=== PATIENT | female | born 1985 | race Caucasian/White ===

== ENCOUNTER → 2018-12-14 | Outpatient (CLI) | payer BC ==
[2018-12-14 23:27] LABS: T4, Free (Free Thyroxine) 1.1 ng/dL (0.80-1.80)
== END | disposition home or self-care (01) ==
LOC: LABWHC1 15:40
PROVIDERS: ATTEND Internal Medicine Endocrinology, Diabetes & Metabolism
DX: E04.1 Nontoxic single thyroid nodule (principal)
CPT/HCPCS: 36415; 84439; 84443

== ENCOUNTER → 2019-05-31 | Outpatient (CLI) | payer BC ==
--- NOTE | 2019-05-31 09:12 | US ---
EXAMINATION TYPE: US gallbladder DATE OF EXAM: 05/31/2019 COMPARISON: NONE CLINICAL HISTORY: K81.0 Acute cholecystitis. Epigastric pain/ burning, NPO EXAM MEASUREMENTS: Liver Length: 16.3 cm Gallbladder Wall: 0.2 cm CBD: 0.4 cm Right Kidney: 10.4 x 5.2 x 5.0 cm Pancreas: Tail obscured by overlying bowel gas Liver: Echogenic lesion visualized in right lobe= 1.6 x 1.7 x 1.1 cm Gallbladder: mobile echogenic foci with shadowing seen - 0.8 cm Evidence for sonographic Regan's sign: neg CBD: wnl Right Kidney: wnl IMPRESSION: 1. Cholelithiasis with no gallbladder wall thickening or pericholecystic fluid. 2. There is a 1.7 cm echogenic lesion within the right lobe of the liver most likely in the basis of a small hemangioma which could be confirmed with postcontrast CT scan of the abdomen and pelvis.
== END | disposition home or self-care (01) ==
LOC: RADUSMAIN 07:59
PROVIDERS: ATTEND Family Medicine
DX: K80.20 Calculus of gallbladder without cholecystitis without obstruction (principal); K76.9 Liver disease, unspecified
CPT/HCPCS: 76705

== ENCOUNTER 2019-06-30 07:59 | Day surgery (SDC) | payer BC ==
[2019-06-28 10:22] VITALS: BMI 31.7
[~2019-06-30 07:59] MED LIST: DEXAMETHASONE SOD PHOSPHATE 10 MG/ML 1 ML VIAL IV ONE; HEPARIN SODIUM,PORCINE 5,000 UNIT/ML 1 ML VIAL SQ ONE; HYDROmorphone 0.5 MG/0.5 ML SYRINGE IVP PRN; LACTATED RINGERS 1,000 ML IV SCH; MIDAZOLAM 2 MG/2 ML VIAL IV PRN; ONDANSETRON 4 MG/2 ML VIAL IVP ONE; SCOPOLAMINE 1.5MG/72HR PATCH TRANSDERM ONE
[2019-06-30] MEDS ORDERED: MIDAZOLAM 2 MG/2 ML VIAL IV ONE (08:43)
--- NOTE | 2019-06-30 08:44 | P.GSHP ---
History of Present Illness H&P Date: 06/30/19 Chief Complaint: Right upper quadrant pain This is a 34-year-old female who's had complete the right upper quadrant pain. Patient was worked up found have gallstones. Past Medical History Past Medical History: Hypertension Additional Past Medical History / Comment(s): states frequent bronchitis & pneumonia, sinus problems., HPV., states recent stomach pains, diarrhea and nausea from gall bladder. History of Any Multi-Drug Resistant Organisms: None Reported Additional Past Surgical History / Comment(s): thyroid bx (no anesthesia), Condyloma Past Anesthesia/Blood Transfusion Reactions: No Reported Reaction, Motion Sickness Past Psychological History: No Psychological Hx Reported Smoking Status: Never smoker Past Alcohol Use History: Occasional Past Drug Use History: None Reported - Past Family History Father Family Medical History: Cancer Additional Family Medical History / Comment(s): lung cancer Medications and Allergies Home Medications Medication Instructions Recorded Confirmed Type Blisovi Control 1 tab PO DAILY 06/28/19 06/30/19 History Losartan Potassium [Cozaar] 50 mg PO DAILY@1300 06/28/19 06/30/19 History Multivitamins, Thera [Multivitamin 1 tab PO DAILY 06/28/19 06/28/19 History (formulary)] Allergies Allergy/AdvReac Type Severity Reaction Status Date / Time Mushroom Allergy Unknown Swelling, Verified 06/28/19 10:12 Red Blotchy Skin walnut Allergy Unknown Swelling, Verified 06/28/19 10:12 Red Blotchy Skin Surgical - Exam Vital Signs Temp Pulse Resp BP Pulse Ox 97.6 F 98 16 140/90 98 06/30/19 08:17 06/30/19 08:17 06/30/19 08:17 06/30/19 08:17 06/30/19 08:17 - General well developed, well nourished, no distress - Eyes PERRL - ENT normal pinna - Neck no masses - Respiratory normal expansion - Cardiovascular Rhythm: regular - Abdomen Abdomen: soft, non tender Assessment and Plan Assessment: Right upper quadrant pain Cholelithiasis We'll perform laparoscopic cholecystectomy.
[2019-06-30] MEDS ORDERED: ROCURONIUM BROMIDE 10 MG/ML 10 ML VIAL IV ONE (09:01)
[2019-06-30] MEDS ORDERED: fentaNYL (PF) 50 MCG/ML 2 ML AMP ONE (09:01)
[2019-06-30] MEDS ORDERED: KETOROLAC 30 MG/ML 1 ML VIAL ONE (09:01)
[2019-06-30] MEDS ORDERED: GLYCOPYRROLATE 0.2 MG/ML 2 ML VIAL ONE (09:01)
[2019-06-30] MEDS ORDERED: MIDAZOLAM 2 MG/2 ML VIAL ONE (09:01)
[2019-06-30] MEDS ORDERED: PROPOFOL 10 MG/ML 20 ML VIAL IV ONE (09:01)
[2019-06-30] MEDS ORDERED: HYDROmorphone (PF) 1 MG/ML ONE (09:01)
[2019-06-30] MEDS ORDERED: SUCCINYLCHOLINE CHLORIDE 100 MG/5 ML SYR IV ONE (09:01)
[2019-06-30] MEDS ORDERED: NEOSTIGMINE 1 MG/ML 10 ML VIAL ONE (09:01)
[2019-06-30] MEDS ORDERED: LIDOCAINE 1% INJ 10MG/ML (20 ML MDV) ONE (09:01)
[2019-06-30] MEDS ORDERED: SODIUM CHLORIDE 0.9% 250 ML with ceFAZolin 2,000 MG IV ONE ×2 (09:05)
[2019-06-30] MEDS ORDERED: BUPIVACAINE (PF) 0.25% 30 ML VIAL SQ ONE (09:26)
[2019-06-30 10:12] VITALS: TEMP 97.1
--- NOTE | 2019-06-30 10:18 | P.OP ---
Date of Procedure: 06/30/19 Preoperative Diagnosis: Cholecystitis Postoperative Diagnosis: Cholecystitis Procedure(s) Performed: Laparoscopic cholecystectomy Anesthesia: DSAH Surgeon: Yovani Ghosh Estimated Blood Loss (ml): 5 Pathology: other (Gallbladder) Condition: stable Disposition: PACU Description of Procedure: The patient was placed on the operating table. The patient received a general endotracheal tube anesthesia. The patients abdomen was prepped and draped in the usual sterile fashion. Through an infraumbilical stab incision, the fascia of the anterior abdominal wall was grasped with a pair of Kochers and then the Veress needle was placed in the peritoneal cavity. Position of the Veress needle was confirmed with positive drop test. The abdomen was then insufflated. After adequate insufflation, the 10 mm trocar was placed in the peritoneal cavity. Following this the laparoscope was placed in the peritoneal cavity. The patient was placed in the head-up, right side up position and then a 5 mm trocar was placed in the right lateral and right subcostal position under direct visualization. A 8 mm trocar was placed in the epigastric position. The gallbladder was grasped in the fundus and infundibulum. Traction on the gallbladder was placed in the lateral and the cephalad positions. The triangle of Calot was visualized.. The cystic duct was bluntly dissected until the union of the cystic duct and common bile duct was seen. A critical view of safety was achieved. The cystic duct was then divided and sealed with the Harmonic scissors. A PDS Endoloop was then placed throughout the cystic duct stump. The cystic artery divided and sealed with the Harmonic scissors. The gallbladder was then removed from the liver bed using Harmonic scissors. The gallbladder was then extracted through the epigastric port site. Operative field was checked for any bleeding spots and Harmonic scissors was used to coagulate the liver bed. The abdomen was irrigated. The trocars were removed. The skin was closed using interrupted 3-0 Vicryl suture. Dermabond dressing were applied. The patient tolerated the procedure well.
[2019-06-30] MEDS ORDERED: ONDANSETRON 4 MG/2 ML VIAL IVP ONE (11:14)
[2019-06-30 11:32] VITALS: BP 102/65; PULSE 68; RESP 16
== END 2019-06-30 12:40 | disposition home or self-care (01) ==
LOC: OR 07:59
PROVIDERS: ATTEND Surgery
DX: K80.10 Calculus of gallbladder with chronic cholecystitis without obstruction (principal); K82.4 Cholesterolosis of gallbladder; I10 Essential (primary) hypertension; Z98.890 Other specified postprocedural states; Z79.3 Long term (current) use of hormonal contraceptives; Z79.899 Other long term (current) drug therapy; Z91.018 Allergy to other foods; Z87.09 Personal history of other diseases of the respiratory system; Z87.01 Personal history of pneumonia (recurrent); Z86.19 Personal history of other infectious and parasitic diseases; Z87.898 Personal history of other specified conditions; Z80.1 Family history of malignant neoplasm of trachea, bronchus and lung
CPT/HCPCS: 81025; 88304; 47562; J2250; J1100; J2710; J2405; J0690; J2001; J3010; J1885; J1170; J0330; J2704

== ENCOUNTER → 2023-06-17 | Outpatient (CLI) | payer BC ==
--- NOTE | 2023-06-17 15:09 | FL ---
EXAMINATION TYPE: FL hysterosalpingography DATE OF EXAM: 06/17/2023 2:27 PM CLINICAL INDICATION:Female, 38 years old with history of N97.9 FEMALE INFERTILITY, UNSPECIFIED; COMPARISON: None TECHNIQUE: The patient was draped in a sterile technique. A speculum examination was performed to natalee ntify the cervical os and no abnormal cervical discharge was noted. A 5-Belarusian catheter was inserted past the cervix and its balloon insufflated. The speculum was then removed and under fluoroscopic gu idance 5 mL of Isovue 370 was injected into the endometrial cavity. Frontal and oblique fluoroscopic images were obtained, the balloon deflated, and catheter removed. A preprocedural fluoroscopic imag e of the pelvis was obtained. Fluoroscopic time: 20 seconds Fluoroscopic images: 0 Radiographs taken: 5 DAP: 188.27 [id number] FINDINGS: Dogman/Woman view of the pelvis demonstrates no acute process or osseous abnormality. Uterus: The endometrium demonstrates The morphology of the opacified uterine cavity does not reveal a ny obvious filling defect such as any septum. Right fallopian tube: The right fallopian tube has a normal appearance and demonstrates extravasation of contrast into the pelvis. Left fallopian tube: The left fallopian tube has a normal appearance and demonstrates extravasation o f contrast into the pelvis. Contrast was seen in both Fallopian tubes with normal spillage into the pelvis bilaterally. IMPRESSION: Patent fallopian tubes with free spillage of contrast bilaterally.
== END | disposition home or self-care (01) ==
LOC: RADUSWWP 13:25 → MERGE 13:30
PROVIDERS: ATTEND Obstetrics & Gynecology
DX: N97.9 Female infertility, unspecified (principal)
CPT/HCPCS: 58340; 74740; Q9967

== ENCOUNTER → 2024-08-01 | Outpatient (CLI) | payer BC ==
--- NOTE | 2024-08-01 08:48 | MM ---
Reason for Exam: Screening (asymptomatic). Last mammogram was performed 1 year(s) and 11 month(s) ago. Patient History: Menarche at age 9. First Full-Term at age 38. Late child-bearing (after 28). Premenopausal. Hormonal Contraceptives, from age 20 until age 36. Maternal aunt (robert) had breast cancer, age 65. Maternal aunt (giovanni) had breast cancer, age 52. Last menstrual period: 06/06/2024 Risk Values: Nicky 5 year model risk: 0.9%. NCI Lifetime model risk: 14.7%. Prior Study Comparison: 08/28/2022 Bilateral MG 3D screening mammo w/cad, [facility]. Tissue Density: The breasts are heterogeneously dense, which may obscure small masses. Findings: Analyzed By CAD. Right breast: There is no suspicious group of microcalcifications or new suspicious mass. Left breast: There is no suspicious group of microcalcifications or new suspicious mass. Overall Assessment: Negative, BI-RAD 1 Management: Screening Mammogram of both breasts in [address] [facility] will attempt to contact patient to return for supplemental views and ultrasound if indicated. Patient should continue monthly self-breast exams. A clinical breast exam by your physician is recommended on an annual basis. This exam should not preclude additional follow-up of suspicious palpable abnormalities. Note on Nicky scores and lifetime risk: 1. A Nicky score greater than 3% is considered moderate risk. If this is the case, consider specialist referral to assess eligibility for a risk reducing agent. 2. If overall lifetime risk for the development of breast cancer is 20% or higher, the patient may qualify for future screening with alternating mammogram and breast MRI. [facility], , 08/01/2024 8:44 AM. Electronically signed and approved by: Ian Ahmadi DO
== END | disposition home or self-care (01) ==
LOC: RADMAMWWP 07:56
PROVIDERS: ATTEND Family Medicine
DX: Z12.31 Encounter for screening mammogram for malignant neoplasm of breast (principal); R92.333 Mammographic heterogeneous density, bilateral breasts; Z80.3 Family history of malignant neoplasm of breast
CPT/HCPCS: 77063; 77067